=== PATIENT | male | born 1980 ===

== ENCOUNTER 2020-07-06 17:35 | Inpatient (IN) | payer OTHER ==
[~2020-07-06] VITALS: Ht 165.1 cm; Wt 82.5 kg
[2020-07-06] MEDS ORDERED: KETOROLAC TROMETHAMINE 30 MG/ML VIAL IVP ONE (18:30)
[2020-07-06] MEDS ORDERED: FAMOTIDINE 10 MG/ML 2 ML VIAL IVP ONE (18:30)
[2020-07-06] MEDS ORDERED: ACETAMINOPHEN 500 MG TABLET PO ONE (18:30)
[2020-07-06] MEDS ORDERED: ONDANSETRON HCL 4 MG/2 ML VIAL IVP ONE (18:30)
[2020-07-06] MEDS ORDERED: MAG HYDROX/AL HYDROX/SIMETH 30 ML SUSP UDCUP PO ONE (18:30)
[2020-07-06 19:53] LABS: BASOPHILS % (AUTO) 0.9 % (0.0-2.0); EOSINOPHILS % (AUTO) 0.2 % (1.0-6.0); HEMATOCRIT 39.3 % (41-53); HEMOGLOBIN 12.9 g/dL (13.5-17.5); LYMPHOCYTES # (AUTO) 1.9 K/uL (1.0-4.8); LYMPHOCYTES % (AUTO) 16.2 % (22.0-44.0); MEAN CORPUSCULAR HEMOGLOBIN 28.2 pg (26.0-34.0); MEAN CORPUSCULAR HGB CONC 32.9 G/dL (31.0-37.0); MEAN CORPUSCULAR VOLUME 86 fL (80-100); MONOCYTES # (AUTO) 0.9 K/uL (0.1-1.0); MONOCYTES % (AUTO) 7.8 % (2.0-9.0); NEUTROPHILS # (AUTO) 8.9 K/uL (1.8-7.7); NEUTROPHILS % (AUTO) 74.9 % (40.0-70.0); PLATELET COUNT (AUTO) 270 K/uL (150-450); RED BLOOD CELL COUNT(AUTO) 4.58 MIL/uL (4.50-5.90); RED CELL DISTRIBUTION WIDTH 14.4 % (11.5-14.5)
[2020-07-06 20:25] LABS: ANION GAP 11 mmol/L (8-16); CALCIUM, TOTAL 8.7 mg/dL (8.8-10.5); CARBON DIOXIDE 26 mmol/L (22-29); CHLORIDE 103 mmol/L (98-107); CREATININE 0.96 mg/dL (0.60-1.30); GLOMERULAR FILTR. RATE CALC > 60 mL/min (>60); GLUCOSE,RANDOM 99 mg/dL (70-110); POTASSIUM 3.9 mmol/L (3.5-5.1); SODIUM SERUM 140 mmol/L (136-145); UREA NITROGEN, BLOOD 19 mg/dL (7-18)
[2020-07-06 20:30] LABS: ALANINE AMINOTRANSFERASE 93 U/L (12-78); ALBUMIN 3.5 g/dL (3.4-5.0); ALKALINE PHOSPHATASE 83 U/L (46-116); ASPARTATE AMINOTRANSFERASE 56 U/L (15-37); BILIRUBIN,TOTAL 1.9 mg/dL (0.1-1.0); TOTAL PROTEIN, SERUM 6.8 g/dL (6.4-8.2)
[2020-07-06] MEDS ORDERED: MAGNESIUM HYDROXIDE SUSPENSION 30 ML UDCUP PO PRN (21:15)
[2020-07-06] MEDS ORDERED: BISACODYL 10 MG RECTAL RECTAL SUPPOSITORY PR PRN (21:15)
[2020-07-06] MEDS ORDERED: ZOLPIDEM TARTRATE 5 MG TABLET PO PRN (21:15)
[2020-07-06] MEDS ORDERED: ACETAMINOPHEN 325 MG TABLET PO PRN (21:15)
[2020-07-06] MEDS ORDERED: LOPERAMIDE HCL 2 MG/15 ML SUSPENSION UDCUP PO PRN (21:15)
[2020-07-06] MEDS ORDERED: ONDANSETRON HCL 4 MG/2 ML VIAL IVP PRN (21:15)
[2020-07-06] MEDS ORDERED: DICYCLOMINE HCL 10 MG CAPSULE PO PRN (21:15)
[2020-07-06] MEDS ORDERED: IBUPROFEN 600 MG TABLET PO PRN (21:15)
[2020-07-06] MEDS ORDERED: LORazepam 1 MG TABLET PO PRN (21:15)
[2020-07-06] MEDS: SODIUM CHLORIDE 0.45% 1,000 ML IV SCH (21:15)
[2020-07-06] MEDS ORDERED: HydrOXYzine PAMOATE 50 MG CAPSULE PO PRN (21:15)
[2020-07-06] MEDS ORDERED: CloNIDine HCL 0.1 MG TABLET PO PRN (21:15)
[2020-07-06] MEDS ORDERED: TraZODone HCL 50 MG TABLET PO PRN (21:15)
[2020-07-06] MEDS ORDERED: PROMETHAZINE HCL 25 MG TABLET PO PRN (21:15)
[2020-07-06] MEDS ORDERED: BACLOFEN 10 MG TABLET PO PRN (21:15)
[2020-07-06] MEDS ORDERED: MAG HYDROX/AL HYDROX/SIMETH ES 30 ML SUSPENSION UDCUP PO PRN (21:15)
[2020-07-06 21:25] LABS: COVID AG,FIA SOURCE NASOPHARYNGEAL
[2020-07-06 22:08] VITALS: BP 114/74
[2020-07-06 23:00] VITALS: BP 121/60
[2020-07-06] MEDS: HEPARIN SODIUM,PORCINE 5,000 UNITS/ML VIAL SQ SCH (23:11)
[2020-07-07] VITALS: BP 113/67
[2020-07-07 00:38] LABS: APPEARANCE,URINE CLEAR (CLEAR); BILIRUBIN,URINE NEGATIVE (NEGATIVE); GLUCOSE, URINE (UA) NEGATIVE (NEGATIVE); KETONES,URINE 40 mg/dL (NEGATIVE); LEUKOCYTE ESTERASE ,URINE NEGATIVE (NEGATIVE); NITRATE,URINE NEGATIVE (NEGATIVE); OCCULT BLOOD,URINE NEGATIVE (NEGATIVE); PH,URINE 5.5 (5.0-8.0); PROTEIN,URINE NEGATIVE (NEGATIVE); UROBILINOGEN,URINE 0.2 mg/dL (<=1.0)
[2020-07-07 00:43] LABS: AMPHET/METH SCREEN,URINE POSITIVE (NEGATIVE); BARBITURATE SCREEN, URINE NEGATIVE (NEGATIVE); BENZODIAZEPINES SCREEN,URINE NEGATIVE (NEGATIVE); CANNABINOID SCREEN,URINE NEGATIVE (NEGATIVE); COCAINE SCREEN,URINE NEGATIVE (NEGATIVE); METHADONE SCREEN, URINE NEGATIVE (NEGATIVE); OPIATE SCREEN,URINE POSITIVE (NEGATIVE)
[2020-07-07 00:44] LABS: PHENCYCLIDINE SCREEN,URINE NEGATIVE (NEGATIVE)
[2020-07-07 01:00] VITALS: BP 137/67
[2020-07-07 07:59] VITALS: BP 127/70
[2020-07-07] MEDS: HEPARIN SODIUM,PORCINE 5,000 UNITS/ML VIAL SQ SCH ×2 (09:21→16:00)
[2020-07-07] MEDS: SODIUM CHLORIDE 0.45% 1,000 ML IV SCH (10:35)
[2020-07-07 15:55] VITALS: BP 114/65
[2020-07-07 20:55] VITALS: BP 120/71
[2020-07-07] MEDS: ACETAMINOPHEN 325 MG TABLET PO PRN (22:00)
[2020-07-07 23:50] VITALS: BP 113/49
[2020-07-08] MEDS: HEPARIN SODIUM,PORCINE 5,000 UNITS/ML VIAL SQ SCH ×4 (00:04→23:07)
[2020-07-08 04:35] VITALS: BP 122/69
[2020-07-08 07:37] VITALS: BP 109/67
[2020-07-08] MEDS: SODIUM CHLORIDE 0.45% 1,000 ML IV SCH ×2 (13:15→23:08)
[2020-07-08 16:00] VITALS: BP 115/73
[2020-07-08 20:35] VITALS: BP 135/69
[2020-07-09 04:35] VITALS: BP 123/69
[2020-07-09 08:56] VITALS: BP 118/82
[2020-07-09] MEDS: HEPARIN SODIUM,PORCINE 5,000 UNITS/ML VIAL SQ SCH (09:13)
[2020-07-09] MEDS: ACETAMINOPHEN 325 MG TABLET PO PRN (09:26)
[2020-07-09] MEDS: SODIUM CHLORIDE 0.45% 1,000 ML IV SCH (15:55)
[2020-07-09 19:40] VITALS: BP 132/84
== END 2020-07-10 06:00 | DRG 897 ==
LOC: EMS 17:38 → 6S 21:05
PROVIDERS: ADMIT Hospitalist; ATTEND Hospitalist
DX: F11.13 Opioid abuse with withdrawal (principal); F19.10 Other psychoactive substance abuse, uncomplicated; D72.829 Elevated white blood cell count, unspecified; F10.10 Alcohol abuse, uncomplicated; Y90.9 Presence of alcohol in blood, level not specified; F15.10 Other stimulant abuse, uncomplicated; F17.210 Nicotine dependence, cigarettes, uncomplicated; R74.8 Abnormal levels of other serum enzymes; Z20.822 Contact with and (suspected) exposure to COVID-19
CPT/HCPCS: 80053; 80307; 81003; 85025; 87426; 99285; G0480; J1644; J1885; J2405; J3490